=== PATIENT | male | born 1990 | race African-American/Black ===

== ENCOUNTER 2017-09-07 22:33 | Emergency (ER) | payer OTHER ==
[~2017-09-07] VITALS: Ht 177.8 cm; Wt 110.0 kg
[~2017-09-07 22:33] MED LIST: HYDR-3535
[2017-09-07 22:56] VITALS: BP 163/72; PULSE 65; RESP 16; TEMP 99; O2SAT 99
[2017-09-08] MEDS ORDERED: DIAZ2 PO (21:22)
[2017-09-08] MEDS ORDERED: IBUP-232 PO (21:22)
== END 2017-09-07 23:25 | disposition left against medical advice (07) ==
LOC: NED 22:33
DX: Z04.1 Encounter for examination and observation following transport accident (principal); Z53.21 Procedure and treatment not carried out due to patient leaving prior to being seen by health care provider
CPT/HCPCS: 99281

== ENCOUNTER 2017-09-08 19:46 | Emergency (ER) | payer OTHER ==
[~2017-09-08] VITALS: Ht 175.3 cm; Wt 119.3 kg
[2017-09-08 19:55] VITALS: BP 146/90; PULSE 74; RESP 20; TEMP 98.6; O2SAT 98
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
[2017-09-08] MEDS ORDERED: DIAZ2 PO (21:22)
[2017-09-08] MEDS ORDERED: IBUP-232 PO (21:22)
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
[2017-09-08] MEDS ORDERED: IBUPROFEN 600 MG TAB PO ONE (21:30)
== END 2017-09-08 21:37 | disposition home or self-care (01) ==
LOC: PHEFT 19:46
DX: S00.83XA Contusion of other part of head, initial encounter (principal); V49.49XA Driver injured in collision with other motor vehicles in traffic accident, initial encounter; Y92.410 Unspecified street and highway as the place of occurrence of the external cause; Z72.0 Tobacco use
CPT/HCPCS: 70450; 99283